=== PATIENT | male | born 1960 | race Asian ===

== ENCOUNTER 2020-01-02 06:58 | Day surgery (SDC) | payer BC ==
[2019-12-27 14:27] VITALS: BMI 23.9
[2020-01-02 08:39] VITALS: TEMP 97.6
[2020-01-02 11:04] VITALS: BP 133/73; PULSE 63
--- NOTE | 2020-01-03 16:54 | PATH ---
Surgical Pathology Report Patient Name: ZHANG VICTOR [facility]. Rec. #: [id number] /Age/Gender: 1960 (Age: 59) / M Account: [id number] Location: [facility]-ENDOSCOPY Taken: 01/02/2020 Received: 01/02/2020 Reported: 01/03/2020 Physicians: Keyur Raymundo M.D. Specimen(s) Received A: CECAL POLYP B: RIGHT COLON POLYP Clinical History Colon screening Final Diagnosis A. CECAL POLYP, POLYPECTOMY: TUBULAR ADENOMA. B. RIGHT COLON POLYP, POLYPECTOMY: TUBULAR ADENOMA. Electronically Signed Mary Pond M.D. Gross Description A. Received in formalin, labeled "cecal polyp" is a portion of barrett soft tissue measuring 0.4 cm. in greatest dimension. Separate organic like material measuring 0.3 cm is also present. The specimens are submitted in toto in one cassette. B. Received in formalin, labeled "right colon polyp" is a barrett, irregular portion of soft tissue measuring 0.3 cm. in greatest dimension. The specimens are submitted in toto in one cassette. __ KWS/01/02/2020 sulki/01/02/2020
== END 2020-01-02 09:25 | disposition home or self-care (01) ==
LOC: JASU-ENDO 06:58
PROVIDERS: ATTEND Internal Medicine Gastroenterology
PROC: 0DBH8ZX Excision of Cecum, Via Natural or Artificial Opening Endoscopic, Diagnostic (ICD-10-PCS; 2020-01-02)
PROC: 0DBK8ZX Excision of Ascending Colon, Via Natural or Artificial Opening Endoscopic, Diagnostic (ICD-10-PCS; principal; 2020-01-02 08:00)
DX: Z12.11 Encounter for screening for malignant neoplasm of colon (principal); D12.2 Benign neoplasm of ascending colon; D12.0 Benign neoplasm of cecum; K64.8 Other hemorrhoids
CPT/HCPCS: 88305-TC